=== PATIENT | female | born 1995 | race Asian ===

== ENCOUNTER 2023-12-27 11:03 | Outpatient (AMB) | payer SELFPAY ==
--- NOTE | 2023-12-27 10:58 | AM.OFFWIN_ITS ---
Intake Vital Signs 12/27/23 11:12 Height 5 ft 4 in Weight 122 lb BMI 20.9 BP 120/60 Blood Pressure Location Lt brachial Position Sitting Pulse 63 Pulse Source Pulse Oximeter Temp 97.9 F Temp Source Temporal Artery Scan Pulse Oximetry (%) 98 Oxygen Delivery Method Room Air Intake Visit Reasons: EP School PE Intake Note: pt is here today for school PE Patient Tobacco Use Status: Never used Tobacco Allergies No Known Allergies Allergy (Verified 12/27/23 11:48) Medication List - Last Reconciled 12/27/23 by Dusty Weathers MD sertraline 50 mg PO DAILY Do you need a note to return to daycare/school/sports/work: No HPI EP School PE HPI0 Details 28-year-old female presents to the [facility] requesting an employment physical. 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 Her job does not require any screening for tuberculosis. [facility] Medical History (Updated 12/27/23 @ 11:48 by Dusty Weathers MD) Generalized anxiety disorder Social History Patient Tobacco Use Status: Never used Tobacco Physical Exam Vital Signs: Last Vital Signs Temp 97.9 F 12/27/23 11:12 Pulse 63 12/27/23 11:12 BP 120/60 12/27/23 11:12 Pulse Ox 98 12/27/23 11:12 Oxygen Delivery Method Room Air 12/27/23 11:12 BMI result Body Mass Index 20.9 Const General: cooperative and healthy appearing Nutritional Appearance: well nourished Orientation/consciousness: patient oriented x3 Limitations: no limitations HEENT Head: Yes normal to inspection Eyes General: appearance normal, both eyes and all related structures Neck Neck: Yes normal visual inspection Chest Chest palpation & inspection: normal palpation of entire chest wall Resp Effort & Inspection: normal respiratory effort Neuro General: patient oriented x3 Assessment & Plan Assessment & Plan (1) Physical exam, pre-employment: Code(s): Z02.1 - Encounter for pre-employment examination Plan Form filled out. Coding Level of Care Code Sports/Work/School Physical Diagnoses Physical exam, pre-employment Z02.1
[2023-12-27 11:12] VITALS: BP 120/60; PULSE 63; TEMP 36.6; O2SAT 98; BMI 20.9
== END 2023-12-27 11:51 | disposition home or self-care (01) ==
PROVIDERS: Visit Provider Internal Medicine
DX: Z02.1 Encounter for pre-employment examination (principal)
CPT/HCPCS: 99080